=== PATIENT | female | born 1975 | race Caucasian/White ===

== ENCOUNTER 2020-07-24 15:20 | Emergency (ER) | payer BC ==
[~2020-07-24] VITALS: Ht 157.5 cm; Wt 74.8 kg
[2020-07-24 15:24] VITALS: BP 107/70
[2020-07-24] MEDS ORDERED: ACYC400T PO (15:50)
[2020-07-24] MEDS ORDERED: PRED20TA5 PO (15:50)
--- NOTE | 2020-07-24 16:04 | NUR ---
44 Y/O F BIB SELF FROM HOME, PATIENT PRESENTS TO ED WITH SMILE UNSYMMETRICAL, WITH R EYE DROOP, EQUAL PROJECT COORDINATOR RN, PT ABLE TO AMBULATE WITH NO DEFICITS, ABLE TO FLEX AND EXTEND UPPER AND LOWER EXTREMITIES. PT STATES THIS STARTED YESTERDAY WHILE DRIVING. NO LOC, NO PAIN. DENIES N/V/D; SKIN IS PINK/WARM/DRY; AAOX4 WITH EVEN AND STEADY GAIT; LUNGS CLEAR BL; HR EVEN AND REGULAR; PT DENIES ANY FEVER, CP, SOB, OR COUGH AT THIS TIME; PATIENT STATES PAIN OF 0/10 AT THIS TIME; VSS; PATIENT POSITIONED FOR COMFORT; HOB ELEVATED; BEDRAILS UP X2; BED DOWN. ER MD MADE AWARE OF PT STATUS. PMH: HEART MURMUR NKA
[2020-07-24 16:08] VITALS: BP 107/70
--- NOTE | 2020-07-24 16:08 | NUR ---
Patient discharged with v/s stable. Written and verbal after care instructions given and explained. Patient alert, oriented and verbalized understanding of instructions. Ambulatory with steady gait. All questions addressed prior to discharge. ID band removed. Patient advised to follow up with PMD. Rx of ACYCLOVIR, PREDNISONE given. Patient educated on indication of medication including possible reaction and side effects. Opportunity to ask questions provided and answered.
== END 2020-07-24 16:08 | disposition home or self-care (01) ==
LOC: MED 15:20
DX: G51.0 Bell's palsy (principal); Z98.890 Other specified postprocedural states
CPT/HCPCS: 99283

== ENCOUNTER 2020-07-27 19:20 | Emergency (ER) | payer BC ==
[~2020-07-27] VITALS: Ht 157.5 cm; Wt 74.8 kg
[~2020-07-27 19:20] MED LIST: ACYC400T PO; PRED20TA5 PO
[2020-07-27 19:35] VITALS: BP 124/68
--- NOTE | 2020-07-27 19:50 | NUR ---
44 Y/O FEMALE PRESENTED TO ED C/O OF FACIAL DROOPING & EYE PAIN SINCE SATURDAY. PT WAS SEEN HERE FOR SAME C/O AND WAS DX W/ BELLS PALSY. PT IS JUST WORRIED THAT HER CONDITION IS WORSENING. PT A/O X 4, CLEAR SPEECH , W/ ASYMMETRICAL FACIAL GRIN. +2 MARKETING AND OUTREACH COORDINATOR STRENGHT. PT DENIES ANY UNILATERAL NUMBNESS/TINGLING OR WEAKNESS IN EXTREMITIES. PT STATES SHE IS HAVING A HARD TIME OPENING HER RT EYE AND "FEELS LIKE SOMETHING IS RIPPING HER APART ON THE INSIDE BEHIND HER LEFT EYE." LEFT EYE , PERRLA. RT EYE , UNABLE TO ASSESS PT STATES IT IS HARD TO OPEN. PT RESTING IN BED, LOCKED AND IN LOWEST POSITION, HOB ELEVATED, SIDE RAIL X 1. VSS . NO ACUTE DISTRESS NOTED. PMH: HEART MURMUR, CHRONIC BACKPAIN NKA
--- NOTE | 2020-07-27 20:00 | NUR ---
ERMD AT BEDSIDE FOR MEDICAL EVALUATION.
[2020-07-27 20:24] VITALS: BP 124/68
--- NOTE | 2020-07-27 20:24 | NUR ---
Patient discharged with v/s stable. Written and verbal after care instructions given and explained. Patient verbalized understanding. Ambulatory with steady gait. All questions addressed prior to discharge. Advised to follow up with PMD.
== END 2020-07-27 20:24 | disposition home or self-care (01) ==
LOC: MED 19:20
DX: G51.0 Bell's palsy (principal); Z86.79 Personal history of other diseases of the circulatory system; Z79.899 Other long term (current) drug therapy
CPT/HCPCS: 99281

== ENCOUNTER 2021-10-20 19:18 | Emergency (ER) | payer BC ==
[~2021-10-20] VITALS: Ht 157.5 cm; Wt 72.6 kg
[~2021-10-20 19:18] MED LIST changes: -ACYC400T PO; +ACYC400T14 PO
[2021-10-20 19:45] VITALS: BP 102/63
--- NOTE | 2021-10-20 19:49 | NUR ---
TO LOBBY FOLLOWING TRIAGE
--- NOTE | 2021-10-20 22:27 | NUR ---
46 Y/O FEMALE BIBS FROM HOME, C/O LEFT EAR PAIN X 3 DAYS. NO DRAINAGE OR DISCHARGE NOTED. PT STATES SHE HEARS A "BUZZING" NOISE IN HER EAR. PT STATES SHE ALSO HAS A COUGH. A/OX4, GCS-15; UNLABORED BREATHING, SPEAKING IN FULL SENTENCES; AMBULATORY W/O ASSISTANCE; DENIES COUGH, SOB, CP, OR FEVER. SKIN PINK/WARM/DRY. NKA
[2021-10-20] MEDS ORDERED: KETOROLAC 60 MG/2 ML VIAL IM ONE (22:55)
[2021-10-20] MEDS ORDERED: CIPR500T4 PO (23:40)
[2021-10-20] MEDS ORDERED: PRED20TA5 PO (23:40)
[2021-10-20] MEDS ORDERED: IBUP-2213 PO (23:40)
[2021-10-21 00:20] VITALS: BP 105/58
--- NOTE | 2021-10-21 00:21 | NUR ---
Patient discharged with v/s stable. Written and verbal after care instructions given and explained. Patient alert, oriented and verbalized understanding of instructions. Ambulatory with steady gait. All questions addressed prior to discharge. ID band removed. Patient advised to follow up with PMD. Rx of CIPRO, IBUPROFEN, AND DELTASONE given. Patient educated on indication of medication including possible reaction and side effects. Opportunity to ask questions provided and answered. VSS, A/OX4, UNLABORED BREATHING, AMBULATORY, AND CALM DEMEANOR.
== END 2021-10-21 00:20 | disposition home or self-care (01) ==
LOC: MED 19:18
DX: H92.02 Otalgia, left ear (principal); R19.7 Diarrhea, unspecified; I25.10 Atherosclerotic heart disease of native coronary artery without angina pectoris
CPT/HCPCS: 96372; 99283; J1885

== ENCOUNTER 2023-03-21 17:24 | Emergency (ER) | payer BC ==
[~2023-03-21] VITALS: Ht 160 cm; Wt 73.9 kg
[~2023-03-21 17:24] MED LIST changes: +CIPR500T4 PO; +IBUP-2213 PO
[2023-03-21 17:25] VITALS: BP 118/75; PULSE 110; RESP 20; TEMP 98.1; O2SAT 98
[2023-03-21] MEDS ORDERED: KETOROLAC 30 MG/ML VIAL IM ONE (18:05)
[2023-03-21] MEDS ORDERED: ONDANSETRON 4 MG ODT PO ONE (18:05)
[2023-03-21] MEDS ORDERED: KETOROLAC 30 MG/ML VIAL ONE (19:26)
[2023-03-21] MEDS ORDERED: ONDANSETRON 4 MG TAB ONE (19:27)
[2023-03-21] MEDS ORDERED: ONDANSETRON 4 MG ODT ONE (19:28)
[2023-03-21 19:48] LABS: FLU B ANTIGEN negative (NEGATIVE)
[2023-03-21 19:50] LABS: FLU A ANTIGEN POSITIVE (NEGATIVE)
[2023-03-21] MEDS ORDERED: PROM118S5 PO (19:57)
[2023-03-21] MEDS ORDERED: ONDA-188 PO (19:57)
[2023-03-21] MEDS ORDERED: CLAR500T14 PO (19:57)
== END 2023-03-21 20:10 | disposition home or self-care (01) ==
LOC: MED 17:24
DX: J06.9 Acute upper respiratory infection, unspecified (principal); Z20.822 Contact with and (suspected) exposure to COVID-19; I25.10 Atherosclerotic heart disease of native coronary artery without angina pectoris; Z79.899 Other long term (current) drug therapy
CPT/HCPCS: 71045; 81002; 87426; 87804; 96372; 99284; J1885; Q0162